=== PATIENT | male | born 1995 ===

== ENCOUNTER 2018-12-10 19:03 | Inpatient (IN) | payer BC ==
[2018-12-10 19:42] VITALS: BMI 26.4
[2018-12-10] MEDS ORDERED: Sodium Chloride 0.9% 1,000 ML IV STA (19:57)
[2018-12-10 20:21] LABS: BASO # 0.07 K/mm3 (0.0-2.0); BASO % 0.7 % (0.0-3.0); EOS # 0.5 (0.0-0.7); EOS % 4.5 % (1.5-5.0); HEMOGLOBIN 15.2 g/dL (14.0-18.0); LYMPH # 3.7 (1.2-3.4); MEAN CORPUSCULAR HEMOGLOBIN 29.1 pg (25.0-35.0); MEAN CORPUSCULAR HGB CONC 33.8 g/dl (31.0-37.0); MEAN PLATELET VOLUME 10.3 fl (7.0-11.0); MONO # 1.3 (0.1-0.6); MONO % 12.1 % (1.0-6.0); RBC 5.23 10^6/uL (3.5-6.1); RED CELL DISTRIBUTION WIDTH 12.8 % (11.5-14.5); WHITE BLOOD COUNT 10.6 10^3/uL (4.5-11.0)
[2018-12-10 20:25] LABS: ALB/GLOB RATIO 1.3 (1.1-1.8); ALBUMIN 4.6 g/dL (3.0-4.8); ALT/SGPT 31 U/L (7-56); AST/SGOT 35 U/L (17-59); BLOOD UREA NITROGEN 11 mg/dL (7-21); CALCIUM 9.4 mg/dL (8.4-10.5); GFR NON-AFRICAN AMERICAN > 60; LIPASE 87 U/L (23-300)
[2018-12-10 20:27] LABS: INR 1.23; PARTIAL THROMBOPLASTIN TIME 35.1 Seconds (26.9-38.3); PROTHROMBIN TIME 13.6 SECONDS (9.4-12.5)
--- NOTE | 2018-12-10 20:35 | ED PDOC ---
Arrival/HPI - General Chief Complaint: GI Problem Time Seen by Provider: 12/10/18 19:08 Historian: Patient - History of Present Illness Narrative History of Present Illness (Text): 12/10/18 20:32 23 year old male, with no significant past medical history, presents to the emergency department with abdominal pain and diarrhea for 4 days. Patient informs on day 1 symptoms began with fever, chills, nausea, and fatigue. Patient informs he had 3 episodes of bloody stools yesterday. Patient states he went to urgent care today, the doctor performed a rectal exam, and patient was found to be positive for blood. He was then advised to come to the ER. Patient denies any recent travel, antibiotic use, or sick contacts. Patient also denies any fever, vomiting, chest pain, shortness of breath, back pain, neck pain, or any other complaints. PMD: Dr Pedraza Time/Duration: Prior to Arrival, < week Symptom Onset: Gradual Symptom Course: Unchanged Quality: Cramping Context: Home Past Medical History - Provider Review Nursing Documentation Reviewed: Yes - Infectious Disease Hx of Infectious Diseases: None - Psychiatric Hx Substance Use: Yes - Anesthesia Hx Anesthesia: No Family/Social History - Physician Review Nursing Documentation Reviewed: Yes Family/Social History: No Known Family HX Smoking Status: Juul Hx Alcohol Use: Yes Frequency of alcohol use: Socially Hx Substance Use: Yes Substance used: Marijuana Allergies/Home Meds Allergies/Adverse Reactions: Allergies almond Allergy (Verified 12/10/18 19:42) RASH soy Allergy (Verified 12/10/18 19:42) RASH Home Medications: Home Meds Medication Instructions Recorded Confirmed No Known Home Med 12/10/18 12/10/18 Review of Systems - Physician Review All systems were reviewed & negative as marked: Yes - Review of Systems Constitutional: Fatigue, Fevers, Night Sweats Respiratory: absent: SOB Gastrointestinal: Abdominal Pain, Diarrhea, Nausea, Hematochezia. absent: Vomiting Musculoskeletal: absent: Back Pain, Neck Pain Physical Exam Vital Signs Reviewed: Yes Vital Signs Temp Pulse Resp BP Pulse Ox 12/10/18 19:42 98.1 F 93 H 18 126/74 98 Temperature: Afebrile Blood Pressure: Normal Pulse: Regular Respiratory Rate: Normal Appearance: Positive for: Well-Appearing, Non-Toxic, Comfortable Pain Distress: None Mental Status: Positive for: Alert and Oriented X 3 - Systems Exam Head: Present: Atraumatic, Normocephalic Pupils: Present: PERRL Extroacular Muscles: Present: EOMI Conjunctiva: Present: Normal Mouth: Present: Dry. No: Moist Mucous Membranes Neck: Present: Normal Range of Motion Respiratory/Chest: Present: Clear to Auscultation, Good Air Exchange. No: Respiratory Distress, Accessory Muscle Use Cardiovascular: Present: Regular Rate and Rhythm, Normal S1, S2. No: Murmurs Abdomen: Present: Tenderness (Mild tenderness to right mid abdomen). No: Distention, Peritoneal Signs, Rebound, Guarding Back: Present: Normal Inspection Upper Extremity: Present: Normal Inspection. No: Cyanosis, Edema Lower Extremity: Present: Normal Inspection. No: Edema Neurological: Present: GCS=15, CN II-XII Intact, Speech Normal Skin: Present: Warm, Dry, Normal Color. No: Rashes Psychiatric: Present: Alert, Oriented x 3, Normal Insight, Normal Concentration Medical Decision Making ED Course and Treatment: 12/10/18 20:50 Impression: 23 year old male presents with diarrhea and hematochezia. Plan: -- CT ABD & Pelvis -- Pepcid -- Toradol -- Zofran -- Urinalysis -- Reassess and disposition Prior Visits: Notes and results from previous visits were reviewed. Progress Notes: 12/10/18 21:00 Labs reviewed and wnl. CT pending. 12/10/18 22:00 CT Abdomen and Pelvis with IV contrast CLINICAL HISTORY: ABD PAIN DIAHREA TECHNIQUE: Axial computed tomography images of the abdomen and pelvis with intravenous contrast. 407.00 mGy-cm CONTRAST: With; OMNI 350 100 ml COMPARISON: None provided. FINDINGS: LUNG BASES: The lung bases appear clear. No pleural effusions are seen. LIVER: Unremarkable. GALLBLADDER AND BILE DUCTS: The gallbladder appears within normal limits. No radioopaque gallstones are seen. No biliary ductal dilatation is evident. PANCREAS: Unremarkable. SPLEEN: Unremarkable. ADRENAL GLANDS: Unremarkable. KIDNEYS, URETERS, AND BLADDER: The kidneys appear within normal limits. There is no hydronephrosis or hydroureter. No urinary calculi are seen. The urinary bladder appeared normal in size and configuration. STOMACH AND BOWEL: Unremarkable appearance of the stomach. No evidence of bowel obstruction. There is mucosal wall thickening and fluid in the lumen seen throughout the ileal smal l intestinal tract; as well as throughout the colon; most pronounced in the lower-mid ascending colon. These findings are thought compatible with ileitis and diffuse colitis. Infectious or inflammatory etiologies are thought most likely. APPENDIX: No evidence of acute appendicitis on CT examination. PERITONEUM: No free fluid. No free air. LYMPH NODES: No lymphadenopathy is evident. REPRODUCTIVE: Unremarkable as visualized. VASCULATURE: No evidence of abdominal aortic aneurysm. BONES: No aggressive appearing osseous lesion. No acute osseous pathology evident. IMPRESSION: 1. Evidence of ileitis and diffuse colitis. 12/10/18 22:34 On reevaluation, patient reports that his pain is controlled at this time, denies any nausea. On exam, patient remains awake alert and oriented 3 in no acute distress. IV cipro and flagyl ordered. CT results discussed with the patient. Diagnosis of colitis and ileitis discussed with the patient. Case discussed with Dr. Pedraza, request that the patient be admitted with GI consult to Dr. Long. Bridge orders placed. - Lab Interpretations Lab Results: PT 13.6 SECONDS (9.4-12.5) H 12/10/18 20:09 INR 1.23 12/10/18 20:09 APTT 35.1 Seconds (26.9-38.3) 12/10/18 20:09 Total Bilirubin 0.9 mg/dL (0.2-1.3) 12/10/18 20:09 AST 35 U/L (17-59) 12/10/18 20:09 ALT 31 U/L (7-56) 12/10/18 20:09 Alkaline Phosphatase 86 U/L (38-126) 12/10/18 20:09 Total Protein 8.1 g/dL (5.8-8.3) 12/10/18 20:09 Albumin 4.6 g/dL (3.0-4.8) 12/10/18 20:09 Globulin 3.5 gm/dL 12/10/18 20:09 Albumin/Globulin Ratio 1.3 (1.1-1.8) 12/10/18 20:09 Lipase 87 U/L (23-300) 12/10/18 20:09 - RAD Interpretation Radiology Orders: 12/10/18 19:57 ABD & PELVIS IV CONTRAST ONLY [CT] Stat - Medication Orders Current Medication Orders: Sodium Chloride (Sodium Chloride 0.9%) 1,000 mls @ 1,000 mls/hr IV .Q1H STA Stop: 12/10/18 20:56 Last Admin: 12/10/18 20:04 Dose: 1,000 mls/hr eMAR Start Stop Document 12/10/18 20:04 KV (Rec: 12/10/18 20:06 KV [id number]) Intravenous Solution Start Date 12/10/18 Start Time 20:04 Discontinued Medications Famotidine (Pepcid) 20 mg IVP STAT STA Stop: 12/10/18 19:58 Last Admin: 12/10/18 20:10 Dose: 20 mg IVP Administration Document 12/10/18 20:10 KV (Rec: 12/10/18 20:10 [place] [id number]) Charges for Administration # of IVP Administrations 1 Ketorolac Tromethamine (Toradol) 30 mg IVP STAT STA Stop: 12/10/18 19:58 Last Admin: 12/10/18 20:06 Dose: 30 mg MAR Pain Assessment Document 12/10/18 20:06 KV (Rec: 12/10/18 20:06 KV [place] [id number]) Pain Reassessment Is this a pain reassessment? No Sleep Is patient sleeping during reassessment? No Presence of Pain Presence of Pain Yes Pain Scale Used Protocol: PSCALES Pain Scale Used Numeric Location Pain Location Body Site Abdomen Description Description Constant Intensity of Pain at present 4 IVP Administration Document 12/10/18 20:06 KV (Rec: 12/10/18 20:06 KV [place] [id number]) Charges for Administration # of IVP Administrations 1 Ondansetron HCl (Zofran Inj) 4 mg IVP STAT STA Stop: 12/10/18 19:58 Last Admin: 12/10/18 20:06 Dose: 4 mg IVP Administration Document 12/10/18 20:06 KV (Rec: 12/10/18 20:07 KV [place] [id number]) Charges for Administration # of IVP Administrations 1 - PA / BRIM IRONER HAND / Resident Statement MD/DO has reviewed & agrees with the documentation as recorded. - Scribe Statement The provider has reviewed the documentation as recorded by the Shakilaibe Ke Mary Provider Scribe Attestation: All medical record entries made by the Scribe were at my direction and personally dictated by me. I have reviewed the chart and agree that the record accurately reflects my personal performance of the history, physical exam, medical decision making, and the department course for this patient. I have also personally directed, reviewed, and agree with the discharge instructions and disposition. Disposition/Present on Arrival - Present on Arrival Any Indicators Present on Arrival: No History of DVT/PE: No History of Uncontrolled Diabetes: No Urinary Catheter: No History of Decub. Ulcer: No History Surgical Site Infection Following: None - Disposition Have Diagnosis and Disposition been Completed?: Yes Diagnosis: Acute colitis, Ileitis Disposition: HOSPITALIZED Disposition Time: 22:15 Patient Plan: Admission Patient Problems: Current Active Problems Problem Status Onset Acute colitis Acute Ileitis Acute Condition: STABLE
[2018-12-10] MEDS ORDERED: Iohexol 350 MG/100 ML VIAL ONE (20:36)
[2018-12-10] MEDS ORDERED: Morphine 2 mg/ml ISec IVP STA (21:09)
[2018-12-10 21:38] LABS: PH,URINE 6.5 (4.7-8.0); URINE BILIRUBIN NEGATIVE (NEGATIVE); URINE BLOOD TRACE-LYSED (NEGATIVE); URINE GLUCOSE (UA) NEGATIVE (NEGATIVE); URINE LEUKOCYTE ESTERASE NEGATIVE Leu/uL (NEGATIVE); URINE PROTEIN NEGATIVE mg/dL (<30 mg/dL); URINE UROBILINOGEN 0.2 E.U./dL (<1 E.U./dL)
[2018-12-10 21:40] LABS: URINE APPEARANCE CLEAR (CLEAR); URINE COLOR YELLOW (YELLOW)
[2018-12-10 21:46] LABS: URINE EPITHELIAL CELLS 0 - 2 /hpf (0-5); URINE RBC 0 - 2 /hpf (0-2)
[2018-12-10] MEDS ORDERED: Ciprofloxacin 400mg/200ml D5W 400 MG/200 ML BAG IVPB STA (22:00)
[2018-12-10] MEDS ORDERED: metroNIDAZOLE IV 500 mg/100 ml 500 MG/100 ML BAG IVPB STA (22:00)
[2018-12-10] MEDS: Sodium Chloride 0.9% 1,000 ML IV SCH (22:49)
[2018-12-10] MEDS: metroNIDAZOLE IV 500 mg/100 ml 500 MG/100 ML BAG IVPB SCH (22:50)
[2018-12-10] MEDS: Dextrose 5%/0.45% NS 1,000 ML IV SCH (22:55)
[2018-12-11 00:08] LABS: BARBITURATES, UR NEGATIVE (NEGATIVE); BENZODIAZEPINES, UR NEGATIVE (NEGATIVE); OPIATES, UR NEGATIVE (NEGATIVE); PHENCYCLIDINE, UR NEGATIVE (NEGATIVE)
[2018-12-11] MEDS: metroNIDAZOLE IV 500 mg/100 ml 500 MG/100 ML BAG IVPB SCH ×3 (05:58→21:09)
[2018-12-11] MEDS: Dextrose 5%/0.45% NS 1,000 ML IV SCH ×3 (05:59→22:02)
[2018-12-11 06:39] LABS: BASO # 0.06 K/mm3 (0.0-2.0); BASO % 0.6 % (0.0-3.0); EOS # 0.5 (0.0-0.7); EOS % 5.1 % (1.5-5.0); HEMOGLOBIN 13.4 g/dL (14.0-18.0); LYMPH # 4.1 (1.2-3.4); LYMPH % 41.5 % (22.0-35.0); MEAN CELL VOLUME 86.8 fl (80.0-105.0); MEAN CORPUSCULAR HEMOGLOBIN 28.9 pg (25.0-35.0); MEAN CORPUSCULAR HGB CONC 33.3 g/dl (31.0-37.0); MEAN PLATELET VOLUME 10.1 fl (7.0-11.0); MONO # 0.9 (0.1-0.6); MONO % 9.3 % (1.0-6.0); RBC 4.63 10^6/uL (3.5-6.1); WHITE BLOOD COUNT 9.9 10^3/uL (4.5-11.0)
[2018-12-11 07:11] LABS: FREE T4 1.12 ng/dL (0.78-2.19)
[2018-12-11 07:36] LABS: ALB/GLOB RATIO 1.2 (1.1-1.8); ALBUMIN 3.6 g/dL (3.0-4.8); ALT/SGPT 26 U/L (7-56); AST/SGOT 25 U/L (17-59); BLOOD UREA NITROGEN 7 mg/dL (7-21); CALCIUM 8.7 mg/dL (8.4-10.5); GFR NON-AFRICAN AMERICAN > 60
--- NOTE | 2018-12-11 08:18 | HP ---
DATE OF EXAM: 12/10/2018 HISTORY OF PRESENT ILLNESS: Patient is a 23-year-old who came to emergency room after he was evaluated by urgent care center. Patient state he has been having intermittent diarrhea for the last 4 days. Yesterday, he had 3 episodes of blood in the stool, so today, he went to urgent care where he had a rectal exam, he was found to be guaiac positive and he was referred to emergency room for further evaluation. Patient does complain of some fever and chills, but no documented nausea or vomiting. There is some abdominal discomfort. Denies excessive use of aspirin or Motrin. No history of chest pain. No shortness of breath. Complains of generalized weakness and fatigue. He has nausea. ALLERGIES: HE IS ALLERGIC TO ALMOND AND SOYA. MEDICATIONS AT HOME: He is not on any medications. REVIEW OF SYSTEMS: Significant for abdominal discomfort. PHYSICAL EXAMINATION: GENERAL: He is awake and alert, able to communicate. VITAL SIGNS: He is afebrile. pulse 93, respirations 18, blood pressure 126/74. LUNGS: Bilateral fair airflow. No rhonchi or crackles. HEART: S1 and S2, audible. ABDOMEN: Soft, palpable, diffuse, slight discomfort. NEUROLOGIC: He is awake, alert, able to communicate. LABORATORY DATA: WBC 10.6, hemoglobin 15, hematocrit 45, and platelet 266. PT 13.6 and INR 1.23. Chemistry; sodium 141, potassium 3.9, chloride 99, CO2 of 30, BUN 11, creatinine 1.0. Blood sugar is 72. LFTs are within normal limits. Urine shows trace white blood. CT scan of the abdomen and pelvis shows pancolitis, ileitis. ASSESSMENT: 1. Pancolitis. 2. Ileitis. 3. Differential is viral versus bacterial versus autoimmune. 4. Non-inflammatory bowel disease. PLAN: We will keep the patient NPO. We will give IV antibiotics, IV fluids. Monitor electrolytes. We will send stool for C. diff, stool for culture. Empirically, we will start on Flagyl and Rocephin. GI consult by Dr. Long is requested. Kwame Pedraza MD [facility] # [id number]
--- NOTE | 2018-12-11 08:23 | CT ---
Date of service: 12/10/2018 PROCEDURE: CT Abdomen and Pelvis with contrast HISTORY: abd pain, diarrhea COMPARISON: None. TECHNIQUE: Contrast dose: 100 cc of Omni 350 Radiation dose: Total exam DLP = 407.1 mGy-cm. This CT exam was performed using one or more of the following dose reduction techniques: Automated exposure control, adjustment of the mA and/or kV according to patient size, and/or use of iterative reconstruction technique. FINDINGS: LOWER THORAX: Unremarkable. LIVER: Unremarkable. No gross lesion or ductal dilatation. GALLBLADDER AND BILE DUCTS: Unremarkable. PANCREAS: Unremarkable. No gross lesion or ductal dilatation. SPLEEN: Unremarkable. ADRENALS: Unremarkable. No mass. KIDNEYS AND URETERS: Unremarkable. No hydronephrosis. No solid mass. VASCULATURE: Unremarkable. No aortic aneurysm. No aortic atherosclerotic calcification or mural plaque present. BOWEL: There is severe mural thickening and edema in the ascending colon consistent with colitis. APPENDIX: Normal appendix. PERITONEUM: Unremarkable. No free fluid. No free air. LYMPH NODES: Unremarkable. No enlarged lymph nodes. BLADDER: Unremarkable. REPRODUCTIVE: Unremarkable. BONES: No acute fracture. OTHER FINDINGS: The report concurs with the preliminary [facility] report IMPRESSION: There is severe mural thickening and edema in the ascending colon consistent with colitis.
--- NOTE | 2018-12-11 08:59 | CP.PCM.CON ---
<Juan R South - Last Filed: 12/11/18 09:59> History of Present Illness - History of Present Illness History of Present Illness: PGY6 GI Fellow Consult Note Patient is a 23yo male without significant past medical history who presented to the ED with complaint of abdominal pain and diarrhea. Four days prior to admission, patient developed loose watery stool and low grade fever. This continued through the as patient developed diffuse, cramping abdominal pain Monday with more pronounced diarrhea. He purchased and used Pepto Bismol and probiotics without any improvement in symptoms. Monday, diarrhea continued and following 5-6 liquid bowel movements, patient began to note passage of clots and fresh blood with stool. Patient admits to monthly episodes where he develops 2-3 days loose bowel movements which often improve without intervention. Denies oral ulcers, vision changes, joint pains, family history of GI illnesses, recent travel, sick contacts or antibiotic use. 12 system ROS performed and negative except where stated PMHx: Discussed with patient and he denies significant medical history PSHx: Discussed with patient and he denies significant surgical history FHx: Discussed with patient and he denies significant family medical history Social: Admits to tobacco use (Juul), occasional EtOH use (every other week), +Marijuana use Endo: No prior endoscopic evaluations Past Patient History - Infectious Disease Hx of Infectious Diseases: None - Past Social History Smoking Status: Current Some Days Smoker - MUSCULOSKELETAL/RHEUMATOLOGICAL Hx Falls: No - PSYCHIATRIC Hx Substance Use: No Other/Comment: smoker - SURGICAL HISTORY Hx Surgeries: No - ANESTHESIA Hx Anesthesia: No Meds Home Medications: Home Medication List Medication Instructions Recorded Confirmed Type Ciprofloxacin [Cipro] 500 mg PO Q12 7 Days tab 12/13/18 Rx Levothyroxine [Synthroid] 25 mcg PO DAILY 7 Days tab 12/13/18 Rx Pantoprazole [Protonix Inj] 40 mg PO DAILY 7 Days #7 12/13/18 Rx metroNIDAZOLE [Flagyl] 500 mg PO TID 7 Days tab 12/13/18 Rx Allergies/Adverse Reactions: Allergies Allergy/AdvReac Type Severity Reaction Status Date / Time almond Allergy RASH Verified 12/10/18 19:42 soy Allergy RASH Verified 12/10/18 19:42 - Medications Medications: Current Medications Acetaminophen (Tylenol 325mg Tab) 650 mg PO Q6H PRN PRN Reason: Fever >100.4 F Sodium Chloride (Sodium Chloride 0.9%) 1,000 mls @ 100 mls/hr IV .Q10H LINNEA Last Admin: 12/10/18 22:49 Dose: 100 mls/hr Dextrose/Sodium Chloride (Dextrose 5%/0.45% Ns 1000 Ml) 1,000 mls @ 125 mls/hr IV .Q8H [facility] Last Admin: 12/11/18 05:59 Dose: 125 mls/hr Metronidazole (Flagyl) 500 mg in 100 mls @ 100 mls/hr IVPB Q8 LINNEA; Protocol Last Admin: 12/11/18 05:58 Dose: 100 mls/hr Ceftriaxone Sodium (Rocephin 1 Gram Ivpb) 1 gm in 100 mls @ 100 mls/hr IVPB DAILY [facility]; Protocol Ondansetron HCl (Zofran Inj) 4 mg IVP Q6H PRN PRN Reason: Nausea/Vomiting Pantoprazole Sodium (Protonix Inj) 40 mg IVP DAILY [facility] Physical Exam - Constitutional Appears: Non-toxic, No Acute Distress - Eye Exam Eye Exam: EOMI, PERRL - ENT Exam ENT Exam: Mucous Membranes Moist - Respiratory Exam Respiratory Exam: Clear to Auscultation Bilateral. absent: Rales, Rhonchi, Wheezes - Cardiovascular Exam Cardiovascular Exam: RRR, +S1, +S2 - GI/Abdominal Exam GI & Abdominal Exam: Normal Bowel Sounds, Soft, Tenderness (RLQ). absent: Distended, Firm, Guarding, Mass, Organomegaly, Rigid - Extremities Exam Extremities exam: Positive for: normal inspection. Negative for: pedal edema - Neurological Exam Neurological exam: Alert, Oriented x3 - Psychiatric Exam Psychiatric exam: Normal Affect, Normal Mood - Skin Skin Exam: Dry, Warm Results - Vital Signs Recent Vital Signs: Last Vital Signs Temp 97.6 F 12/11/18 08:54 Pulse 70 12/11/18 08:54 Resp 20 12/11/18 08:54 BP 113/63 12/11/18 08:54 Pulse Ox 99 12/11/18 08:54 - Labs Result Diagrams: 12/11/18 06:00 12/11/18 06:00 Labs: Laboratory Results - last 24 hr 12/10/18 12/10/18 12/10/18 20:09 20:09 20:09 WBC 10.6 RBC 5.23 Hgb 15.2 Hct 45.0 MCV 86.0 MCH 29.1 MCHC 33.8 RDW 12.8 Plt Count 266 MPV 10.3 Neut % (Auto) 47.7 L Lymph % (Auto) 35.0 Swisher % (Auto) 12.1 H Eos % (Auto) 4.5 Baso % (Auto) 0.7 Lymph # (Auto) 3.7 H Swisher # (Auto) 1.3 H Eos # (Auto) 0.5 Baso # (Auto) 0.07 Absolute Neuts (auto) 5.05 PT 13.6 H INR 1.23 APTT 35.1 Sodium 141 Potassium 3.9 Chloride 99 Carbon Dioxide 30 Anion Gap 15 BUN 11 Creatinine 1.0 Est GFR ( Amer) > 60 Est GFR (Non-Af Amer) > 60 Random Glucose 72 Calcium 9.4 Magnesium 2.0 Total Bilirubin 0.9 AST 35 ALT 31 Alkaline Phosphatase 86 Total Protein 8.1 Albumin 4.6 Globulin 3.5 Albumin/Globulin Ratio 1.3 Lipase 87 Free T4 TSH 3rd Generation Urine Color Urine Appearance Urine pH Ur Specific [place] Urine Protein Urine Glucose (UA) Urine Ketones Urine Blood Urine Nitrate Urine Bilirubin Urine Urobilinogen Ur Leukocyte Esterase Urine RBC Urine WBC Ur Epithelial Cells Urine Opiates Screen Urine Methadone Screen Ur Barbiturates Screen Ur Phencyclidine Scrn Ur Amphetamines Screen U Benzodiazepines Scrn U Oth Cocaine Metabols U Cannabinoids Screen 12/10/18 12/10/18 12/11/18 21:15 23:15 06:00 WBC 9.9 RBC 4.63 Hgb 13.4 L Hct 40.2 L MCV 86.8 MCH 28.9 MCHC 33.3 RDW 13.0 Plt Count 228 MPV 10.1 Neut % (Auto) 43.5 L Lymph % (Auto) 41.5 H Swisher % (Auto) 9.3 H Eos % (Auto) 5.1 H Baso % (Auto) 0.6 Lymph # (Auto) 4.1 H Swisher # (Auto) 0.9 H Eos # (Auto) 0.5 Baso # (Auto) 0.06 Absolute Neuts (auto) 4.31 PT INR APTT Sodium Potassium Chloride Carbon Dioxide Anion Gap BUN Creatinine Est GFR ( Amer) Est GFR (Non-Af Amer) Random Glucose Calcium Magnesium Total Bilirubin AST ALT Alkaline Phosphatase Total Protein Albumin Globulin Albumin/Globulin Ratio Lipase Free T4 TSH 3rd Generation Urine Color Yellow Urine Appearance Clear Urine pH 6.5 Ur Specific [place] 1.010 Urine Protein Negative Urine Glucose (UA) Negative Urine Ketones Negative Urine Blood Trace-lysed H Urine Nitrate Negative Urine Bilirubin Negative Urine Urobilinogen 0.2 Ur Leukocyte Esterase Negative Urine RBC 0 - 2 Urine WBC None Ur Epithelial Cells 0 - 2 Urine Opiates Screen Negative Urine Methadone Screen Negative Ur Barbiturates Screen Negative Ur Phencyclidine Scrn Negative Ur Amphetamines Screen Negative U Benzodiazepines Scrn Negative U Oth Cocaine Metabols Negative U Cannabinoids Screen Positive H 12/11/18 12/11/18 06:00 06:00 WBC RBC Hgb Hct MCV MCH MCHC RDW Plt Count MPV Neut % (Auto) Lymph % (Auto) Swisher % (Auto) Eos % (Auto) Baso % (Auto) Lymph # (Auto) Swisher # (Auto) Eos # (Auto) Baso # (Auto) Absolute Neuts (auto) PT INR APTT Sodium 140 Potassium 3.9 Chloride 103 Carbon Dioxide 29 Anion Gap 12 BUN 7 Creatinine 1.0 Est GFR ( Amer) > 60 Est GFR (Non-Af Amer) > 60 Random Glucose 93 Calcium 8.7 Magnesium Total Bilirubin 0.8 AST 25 ALT 26 Alkaline Phosphatase 64 Total Protein 6.5 Albumin 3.6 Globulin 2.9 Albumin/Globulin Ratio 1.2 Lipase Free T4 1.12 TSH 3rd Generation 5.65 H Urine Color Urine Appearance Urine pH Ur Specific [place] Urine Protein Urine Glucose (UA) Urine Ketones Urine Blood Urine Nitrate Urine Bilirubin Urine Urobilinogen Ur Leukocyte Esterase Urine RBC Urine WBC Ur Epithelial Cells Urine Opiates Screen Urine Methadone Screen Ur Barbiturates Screen Ur Phencyclidine Scrn Ur Amphetamines Screen U Benzodiazepines Scrn U Oth Cocaine Metabols U Cannabinoids Screen Assessment & Plan - Assessment and Plan (Free Text) Assessment: Patient is a 23yo male without significant past medical history who presented to the ED with complaint of abdominal pain and diarrhea -Acute ascending colitis Plan: -CT scan reviewed with evidence of acute ascending colitis, ileitis -Agree with antibiotic therapy - Ceftriaxone/Flagyl ordered -Liquid diet -Stool infectious work up -Tentative plan for flexible sigmoidoscopy tomorrow pending clinical condition - R/O inflammatory vs infectious etiology - Date & Time Date: 12/11/18 Time: 07:35 <Puma Long V - Last Filed: 12/13/18 20:11> Meds - Medications Medications: Current Medications Acetaminophen (Tylenol 325mg Tab) 650 mg PO Q6H PRN PRN Reason: Fever >100.4 F Last Admin: 12/11/18 09:11 Dose: 650 mg Dicyclomine HCl (Bentyl) 10 mg PO TID [facility] Last Admin: 12/12/18 17:30 Dose: 10 mg Dextrose/Sodium Chloride (Dextrose 5%/0.45% Ns 1000 Ml) 1,000 mls @ 125 mls/hr IV .Q8H [facility] Last Admin: 12/12/18 14:09 Dose: 125 mls/hr Metronidazole (Flagyl) 500 mg in 100 mls @ 100 mls/hr IVPB Q8 [facility]; Protocol Last Admin: 12/12/18 21:13 Dose: 100 mls/hr Ceftriaxone Sodium (Rocephin 1 Gram Ivpb) 1 gm in 100 mls @ 100 mls/hr IVPB DAILY [facility]; Protocol Last Admin: 12/12/18 10:41 Dose: 100 mls/hr Levothyroxine Sodium (Synthroid) 25 mcg PO 0600 [facility] Last Admin: 12/12/18 05:49 Dose: 25 mcg Ondansetron HCl (Zofran Inj) 4 mg IVP Q6H PRN PRN Reason: Nausea/Vomiting Pantoprazole Sodium (Protonix Inj) 40 mg IVP DAILY [facility] Last Admin: 12/12/18 10:41 Dose: 40 mg Results - Vital Signs Recent Vital Signs: Last Vital Signs Temp 97.5 F L 12/12/18 08:26 Pulse 71 12/12/18 08:26 Resp 18 12/12/18 08:26 BP 108/71 12/12/18 08:26 Pulse Ox 99 12/12/18 08:26 - Labs Result Diagrams: 12/12/18 07:00 12/12/18 07:00 Labs: Laboratory Results - last 24 hr 12/12/18 12/12/18 07:00 07:00 WBC 7.8 D RBC 4.85 Hgb 13.7 L Hct 42.2 MCV 87.0 MCH 28.2 MCHC 32.5 RDW 12.9 Plt Count 253 MPV 9.8 Neut % (Auto) 41.5 L Lymph % (Auto) 40.9 H Swisher % (Auto) 9.8 H Eos % (Auto) 6.9 H Baso % (Auto) 0.9 Lymph # (Auto) 3.2 Swisher # (Auto) 0.8 H Eos # (Auto) 0.5 Baso # (Auto) 0.07 Absolute Neuts (auto) 3.22 Sodium 142 Potassium 4.1 Chloride 104 Carbon Dioxide 32 Anion Gap 11 BUN 4 L Creatinine 0.9 Est GFR ( Amer) > 60 Est GFR (Non-Af Amer) > 60 Random Glucose 82 Calcium 9.2 Total Bilirubin 1.0 AST 28 ALT 25 Alkaline Phosphatase 64 Total Protein 6.8 Albumin 3.8 Globulin 3.0 Albumin/Globulin Ratio 1.3 Attending/Attestation - Attestation I have personally seen and examined this patient.: Yes I have fully participated in the care of the patient.: Yes I have reviewed all pertinent clinical information: Yes Notes (Text): This is an addendum to the GI consultation report dictated by the GI fellow. The patient was seen and evaluated with the fellow earlier. CT scan was reviewed. This patient presented with acute onset abdominal pain and diarrhea CT shows significant thickening of the cecum ascending colon.. Also some patchy thickening of the left colon noticed. Patient is scheduled for a flexible sigmoidoscopy to further evaluate Follow-up stool studies 12/12/18 23:54 12/13/18 20:09
[2018-12-11] MEDS: cefTRIAXone 1 gm 1 GM/100 ML BAG IVPB SCH (09:11)
[2018-12-11] MEDS: Sodium Chloride 0.9% 1,000 ML IV SCH (21:18)
--- NOTE | 2018-12-11 23:59 | CP.PCM.CON ---
Past Patient History - Infectious Disease Hx of Infectious Diseases: None - Past Social History Smoking Status: Current Some Days Smoker - MUSCULOSKELETAL/RHEUMATOLOGICAL Hx Falls: No - PSYCHIATRIC Hx Substance Use: No Other/Comment: smoker - SURGICAL HISTORY Hx Surgeries: No - ANESTHESIA Hx Anesthesia: No Meds Allergies/Adverse Reactions: Allergies Allergy/AdvReac Type Severity Reaction Status Date / Time almond Allergy RASH Verified 12/10/18 19:42 soy Allergy RASH Verified 12/10/18 19:42 - Medications Medications: Current Medications Acetaminophen (Tylenol 325mg Tab) 650 mg PO Q6H PRN PRN Reason: Fever >100.4 F Last Admin: 12/11/18 09:11 Dose: 650 mg Dicyclomine HCl (Bentyl) 10 mg PO TID LINNEA Last Admin: 12/11/18 18:18 Dose: 10 mg Sodium Chloride (Sodium Chloride 0.9%) 1,000 mls @ 100 mls/hr IV .Q10H LINNEA Last Admin: 12/11/18 21:18 Dose: Not Given Dextrose/Sodium Chloride (Dextrose 5%/0.45% Ns 1000 Ml) 1,000 mls @ 125 mls/hr IV .Q8H LINNEA Last Admin: 12/11/18 22:02 Dose: Not Given Metronidazole (Flagyl) 500 mg in 100 mls @ 100 mls/hr IVPB Q8 [facility]; Protocol Last Admin: 12/11/18 21:09 Dose: 100 mls/hr Ceftriaxone Sodium (Rocephin 1 Gram Ivpb) 1 gm in 100 mls @ 100 mls/hr IVPB DAILY [facility]; Protocol Last Admin: 12/11/18 09:11 Dose: 100 mls/hr Levothyroxine Sodium (Synthroid) 25 mcg PO 0600 [facility] Ondansetron HCl (Zofran Inj) 4 mg IVP Q6H PRN PRN Reason: Nausea/Vomiting Pantoprazole Sodium (Protonix Inj) 40 mg IVP DAILY [facility] Last Admin: 12/11/18 10:00 Dose: 40 mg Results - Vital Signs Recent Vital Signs: Last Vital Signs Temp 98.4 F 12/11/18 16:05 Pulse 76 12/11/18 16:05 Resp 20 12/11/18 16:05 BP 101/70 12/11/18 16:05 Pulse Ox 99 12/11/18 16:05 - Labs Result Diagrams: 12/11/18 06:00 12/11/18 06:00 Labs: Laboratory Results - last 24 hr 12/10/18 12/11/18 12/11/18 23:15 06:00 06:00 WBC 9.9 RBC 4.63 Hgb 13.4 L Hct 40.2 L MCV 86.8 MCH 28.9 MCHC 33.3 RDW 13.0 Plt Count 228 MPV 10.1 Neut % (Auto) 43.5 L Lymph % (Auto) 41.5 H [place] % (Auto) 9.3 H Eos % (Auto) 5.1 H Baso % (Auto) 0.6 Lymph # (Auto) 4.1 H [place] # (Auto) 0.9 H Eos # (Auto) 0.5 Baso # (Auto) 0.06 Absolute Neuts (auto) 4.31 Sodium 140 Potassium 3.9 Chloride 103 Carbon Dioxide 29 Anion Gap 12 BUN 7 Creatinine 1.0 Est GFR ( Amer) > 60 Est GFR (Non-Af Amer) > 60 Random Glucose 93 Calcium 8.7 Total Bilirubin 0.8 AST 25 ALT 26 Alkaline Phosphatase 64 Total Protein 6.5 Albumin 3.6 Globulin 2.9 Albumin/Globulin Ratio 1.2 Free T4 TSH 3rd Generation Stool Occult Blood Urine Opiates Screen Negative Urine Methadone Screen Negative Ur Barbiturates Screen Negative Ur Phencyclidine Scrn Negative Ur Amphetamines Screen Negative U Benzodiazepines Scrn Negative U Oth Cocaine Metabols Negative U Cannabinoids Screen Positive H 12/11/18 12/11/18 06:00 14:30 WBC RBC Hgb Hct MCV MCH MCHC RDW Plt Count MPV Neut % (Auto) Lymph % (Auto) [place] % (Auto) Eos % (Auto) Baso % (Auto) Lymph # (Auto) [place] # (Auto) Eos # (Auto) Baso # (Auto) Absolute Neuts (auto) Sodium Potassium Chloride Carbon Dioxide Anion Gap BUN Creatinine Est GFR ( Amer) Est GFR (Non-Af Amer) Random Glucose Calcium Total Bilirubin AST ALT Alkaline Phosphatase Total Protein Albumin Globulin Albumin/Globulin Ratio Free T4 1.12 TSH 3rd Generation 5.65 H Stool Occult Blood Positive H Urine Opiates Screen Urine Methadone Screen Ur Barbiturates Screen Ur Phencyclidine Scrn Ur Amphetamines Screen U Benzodiazepines Scrn U Oth Cocaine Metabols U Cannabinoids Screen Attending/Attestation - Attestation I have personally seen and examined this patient.: Yes I have fully participated in the care of the patient.: Yes I have reviewed all pertinent clinical information: Yes Notes (Text): p 12/11/18 23:59
[2018-12-12] MEDS: Dextrose 5%/0.45% NS 1,000 ML IV SCH ×2 (05:48→14:09)
[2018-12-12] MEDS: Levothyroxine 25 MCG TAB PO SCH (05:49)
[2018-12-12] MEDS: metroNIDAZOLE IV 500 mg/100 ml 500 MG/100 ML BAG IVPB SCH ×3 (05:49→21:13)
[2018-12-12 07:23] LABS: BASO # 0.07 K/mm3 (0.0-2.0); BASO % 0.9 % (0.0-3.0); EOS # 0.5 (0.0-0.7); EOS % 6.9 % (1.5-5.0); HEMOGLOBIN 13.7 g/dL (14.0-18.0); LYMPH # 3.2 (1.2-3.4); LYMPH % 40.9 % (22.0-35.0); MEAN CORPUSCULAR HEMOGLOBIN 28.2 pg (25.0-35.0); MEAN CORPUSCULAR HGB CONC 32.5 g/dl (31.0-37.0); MEAN PLATELET VOLUME 9.8 fl (7.0-11.0); MONO # 0.8 (0.1-0.6); MONO % 9.8 % (1.0-6.0); RBC 4.85 10^6/uL (3.5-6.1); RED CELL DISTRIBUTION WIDTH 12.9 % (11.5-14.5); WHITE BLOOD COUNT 7.8 10^3/uL (4.5-11.0)
[2018-12-12 07:36] LABS: ALB/GLOB RATIO 1.3 (1.1-1.8); ALBUMIN 3.8 g/dL (3.0-4.8); ALT/SGPT 25 U/L (7-56); AST/SGOT 28 U/L (17-59); BLOOD UREA NITROGEN 4 mg/dL (7-21); CALCIUM 9.2 mg/dL (8.4-10.5); GFR NON-AFRICAN AMERICAN > 60
--- NOTE | 2018-12-12 08:10 | PN ---
DATE: 12/11/2018 SUBJECTIVE: The patient is a 23-year-old, seen and examined, He states he had abdominal discomfort, did not have any bloody bowel movements since he came here. Still has some bloated feeling. Did not vomit. No history of fever or chills. PHYSICAL EXAMINATION: VITAL SIGNS: He is afebrile, pulse 70, respirations 20, and blood pressure 130/63. LUNGS: Bilateral clear airflow. No rhonchi or crackle. HEART: S1 and S2 audible. ABDOMEN: Soft and nontender. No rebound. No guarding. He has slight periumbilical discomfort upon palpation and right lower quadrant discomfort. NEUROLOGIC: He is awake and alert. Able to communicate. LABORATORY DATA: WBC 9.9, hemoglobin 13.4, hematocrit 40 and platelet 228. Chemistry; sodium 140, potassium 3.9, chloride 103, CO2 of 29, BUN 7, creatinine 1, blood sugar of 93 and TSH 5.65. Urine tox positive for marijuana use. CT scan of the abdomen and pelvis shows severe mural thickening and edema in the ascending colon consistent with colitis. ASSESSMENT: 1. Colitis. Etiology unclear, viral versus ulcerative colitis. 2. Rectal bleeding secondary to colitis. PLAN: Currently the patient is on intravenous fluid. He is on metronidazole. He is on Protonix. Continue . We will start him on Bentyl. Follow up his electrolytes. We will discuss with other distributed energy systems consultant. Kwame Pedraza MD
[2018-12-12 08:27] VITALS: RESP 18
[2018-12-12] MEDS: cefTRIAXone 1 gm 1 GM/100 ML BAG IVPB SCH (10:41)
--- NOTE | 2018-12-12 13:49 | PN ---
DATE: 12/12/2018 SUBJECTIVE: The patient is 23-year-old, seen and examined. He states he had one formed stool last night. Cramps are better, feel blotted. No more rectal bleeding. Denies any nausea. Does have blotting. PHYSICAL EXAMINATION: GENERAL: He is awake and alert, able to communicate. VITAL SIGNS: He is afebrile, pulse 71, respirations 18, and blood pressure 108/71. LUNGS: Bilateral clear airflow. No rhonchi or crackle. HEART: S1 and S2 audible. ABDOMEN: Soft. Slight palpable discomfort. NEUROLOGIC: The patient is awake and alert, able to communicate. LABORATORY DATA: WBC 7.8, hemoglobin 13.7, hematocrit 42 and platelet 253. Chemistry; sodium 142, potassium 4.1, chloride 104, CO2 of 32, BUN 4, creatinine 0.9, blood sugar of 82 and TSH 5.65. ASSESSMENT: 1. Rectal bleeding. 2. Ascending colitis. 3. Hypothyroidism. PLAN: Currently, the patient is n.p.o. He is getting Bentyl. We will continue him on IV fluid, IV metronidazole. Stool for Clostridium difficile is negative. Continue levothyroxine. We will reevaluate in a.m. We can start him on clear liquid if okay . Kwame Pedraza MD
[2018-12-12] MEDS ORDERED: Lidocaine 2% Jelly (30 ml) ONE (17:25)
[2018-12-13] MEDS: Dextrose 5%/0.45% NS 1,000 ML IV SCH (05:27)
[2018-12-13] MEDS: metroNIDAZOLE IV 500 mg/100 ml 500 MG/100 ML BAG IVPB SCH ×2 (05:27→13:13)
[2018-12-13] MEDS: Levothyroxine 25 MCG TAB PO SCH (05:27)
[2018-12-13 08:35] VITALS: BP 100/62; PULSE 66; TEMP 97.3; O2SAT 100
[2018-12-13] MEDS ORDERED: Lidocaine 2% Jelly (30 ml) TOP ONE (09:08)
[2018-12-13] MEDS: cefTRIAXone 1 gm 1 GM/100 ML BAG IVPB SCH (10:48)
--- NOTE | 2018-12-13 19:54 | CP.PCM.PN ---
Subjective - Date & Time of Evaluation Date of Evaluation: 12/13/18 Time of Evaluation: 08:45 - Subjective Subjective: Patient comfortable status post a flexible sigmoidoscopic examination Objective - Vital Signs/Intake and Output Vital Signs (last 24 hours): Temp Pulse Resp BP Pulse Ox 97.3 F L 66 18 100/62 100 12/13/18 08:34 12/13/18 08:34 12/13/18 08:34 12/13/18 08:34 12/13/18 09:00 - Labs Labs: 12/12/18 07:00 12/12/18 07:00 PT 13.6 SECONDS (9.4-12.5) H 12/10/18 20:09 INR 1.23 12/10/18 20:09 APTT 35.1 Seconds (26.9-38.3) 12/10/18 20:09 Assessment and Plan - Assessment and Plan (Free Text) Assessment: This patient underwent a flexible sigmoidoscopy evaluation today. Found to have a patchy colitis extending from the rectum all to be up to 55 cm. The scope was not advanced beyond that. Stool studies were sent. CT scan reviewed. Significant thickening in the right colon and cecum. Patient was clinically getting better. I recommend to complete an antibiotic course. Patient would may need elective colonoscopy evaluation Discussed with Dr. Pedraza I recommended follow-up with Dr. Pedraza and follow-up in our office in about 2 weeks time
--- NOTE | 2018-12-14 06:29 | DS ---
HISTORY OF PRESENT ILLNESS: The patient is 23-year-old, who came to emergency room because of rectal bleeding and intermittent abdominal discomfort, blotting, and cramps. The patient was kept NPO with given IV fluid, IV antibiotics, he was given Flagyl and Cipro. The patient responded very well. Had a flexible sigmoidoscopy done yesterday. Biopsies were taken. No more extra bleeding. He was given good, he tolerated, so he is being discharged today. PHYSICAL EXAMINATION: GENERAL: He is comfortable. VITAL SIGNS: He is afebrile, pulse 66, respirations 18, and blood pressure 100/62. LUNGS: Bilateral soft crackle in upper lung region. HEART: S1 and S2 audible. ABDOMEN: Soft and nontender. No rebound. No guarding. NEUROLOGIC: The patient is awake and alert; able to communicate. EXTREMITIES: Bilateral leg no edema. LABORATORY DATA: His TSH is 5.65. ASSESSMENT: 1. Colitis, etiology is unclear, waiting for biopsy, could be vital colitis versus rule out ulcerative colitis. 2. Hypothyroidism. PLAN: The patient is being discharged home. He is advised to eat soft diet, low fiber. He will be discharged on Cipro 500 mg twice a day for a week, Flagyl 500 mg three times a day for a week. He will followup with me and Dr. Long in 2 weeks. Kwame Pedraza MD
== END 2018-12-13 16:04 | disposition home or self-care (01) | DRG 387 ==
LOC: ED 19:03 → ERH 22:31 → 3RSO 23:39
PROVIDERS: ADMIT Internal Medicine; ATTEND Internal Medicine
PROC: 0DBN8ZX Excision of Sigmoid Colon, Via Natural or Artificial Opening Endoscopic, Diagnostic (ICD-10-PCS; 2018-12-13)
PROC: 0DBP8ZX Excision of Rectum, Via Natural or Artificial Opening Endoscopic, Diagnostic (ICD-10-PCS; principal; 2018-12-13 10:00)
DX: K51.50 Left sided colitis without complications (principal); R53.1 Weakness; K64.8 Other hemorrhoids; E03.9 Hypothyroidism, unspecified; F12.90 Cannabis use, unspecified, uncomplicated; Z79.890 Hormone replacement therapy; Z72.0 Tobacco use